=== PATIENT | male | born 1965 | race Caucasian/White ===

== ENCOUNTER 2017-05-17 13:21 | Emergency (ER) | payer OTHER ==
[~2017-05-17] VITALS: Ht 182.9 cm; Wt 59.0 kg
[2017-05-17 14:07] LABS: HEMATOCRIT 37.7 % (39.2-51.8); HEMOGLOBIN 12.8 g/dL (13.7-18.0); WHITE BLOOD COUNT 5.1 x10^3/uL (3.4-10)
[2017-05-17] MEDS ORDERED: LEVE250T28 PO (14:11)
[2017-05-17] MEDS ORDERED: CARB200T2 PO (14:11)
[2017-05-17] MEDS ORDERED: DIVA500T2 PO (14:11)
[2017-05-17 14:13] LABS: ASPARTATE AMINO TRANSFERASE 15 U/L (15-37); BLOOD UREA NITROGEN 22 mg/dL (7-18)
[2017-05-17] MEDS ORDERED: LEVETIRACETAM 1,000 MG in SODIUM CHLORIDE 0.9% 100 ML IV ONE (14:30)
[2017-05-17 15:27] VITALS: BP 117/66
== END 2017-05-17 15:30 | disposition home or self-care (01) ==
LOC: ED 15:07
DX: G40.419 Other generalized epilepsy and epileptic syndromes, intractable, without status epilepticus (principal)
CPT/HCPCS: 36415; 80053; 85025; 93005; 96365; 99285; J1953

== ENCOUNTER 2017-06-03 11:54 | Emergency (ER) | payer SELFPAY ==
[~2017-06-03] VITALS: Ht 182.9 cm; Wt 56.8 kg
[~2017-06-03 11:54] MED LIST: CARB200T2 PO; DIVA500T2 PO; LEVE250T28 PO
[2017-06-03 11:55] VITALS: BP 154/83
== END 2017-06-03 12:43 | disposition home or self-care (01) ==
LOC: ED 12:15
DX: Z76.0 Encounter for issue of repeat prescription (principal)
CPT/HCPCS: 99283

== ENCOUNTER 2017-07-20 12:41 | Emergency (ER) | payer OTHER ==
[~2017-07-20] VITALS: Ht 182.9 cm; Wt 61.8 kg
[2017-07-20 12:59] VITALS: BP 142/81
== END 2017-07-20 13:41 | disposition home or self-care (01) ==
LOC: ED 13:35
DX: Z76.0 Encounter for issue of repeat prescription (principal); G40.909 Epilepsy, unspecified, not intractable, without status epilepticus
CPT/HCPCS: 99283

== ENCOUNTER 2017-10-10 06:23 | Emergency (ER) | payer MEDICAID, OTHER ==
[~2017-10-10] VITALS: Ht 182.9 cm; Wt 63.8 kg
[2017-10-10] MEDS ORDERED: SODIUM CHLORIDE FLUSH 10ML SYR IVF ONE (07:00)
[2017-10-10] MEDS ORDERED: LEVETIRACETAM 1,000 MG in SODIUM CHLORIDE 0.9% 100 ML IV ONE (07:00)
[2017-10-10 07:31] LABS: BASOPHILS # (AUTO) 0.02 x10^3/uL (0-0.1); BASOPHILS % (AUTO) 0 % (0-1); EOSINOPHILS # (AUTO) 0.36 x10^3/uL (0-0.4); EOSINOPHILS % (AUTO) 7 % (1-7); LYMPHOCYTES # (AUTO) 0.82 x10^3/uL (1-3.4); LYMPHOCYTES % (AUTO) 17 % (22-44); MD NO; MEAN CORPUSCULAR HEMOGLOBIN 30.8 pg (27.5-34.5); MEAN CORPUSCULAR HGB CONC 33.6 g/dL (33.2-36.2); MEAN CORPUSCULAR VOLUME 91.7 fL (81-97); MEAN PLATELET VOLUME 7.6 fL (7.4-10.4); MONOCYTES # (AUTO) 0.34 x10^3/uL (0.2-0.8); MONOCYTES % (AUTO) 7 % (2-9); NEUTROPHILS # (AUTO) 3.36 x10^3/uL (1.8-6.8); NEUTROPHILS % (AUTO) 69 % (42-75); PLATELET COUNT 254 x10^3/uL (130-400); RED BLOOD COUNT 4.19 x10^6/uL (4.38-5.82); RED CELL DISTRIBUTION WIDTH 13.4 % (9.4-14.8)
[2017-10-10 07:43] LABS: ALANINE AMINOTRANSFERASE 19 U/L (12-78); ALBUMIN 3.2 g/dL (3.4-5.0); ANION GAP 4 mmol/L (5-15); CHLORIDE 105 mmol/L (98-107); CREATININE 0.94 mg/dL (0.7-1.3)
[2017-10-10 07:46] LABS: ALKALINE PHOSPHATASE 73 U/L (45-117); BILIRUBIN,TOTAL 0.2 mg/dL (0.2-1.0); TOTAL PROTEIN 7.1 g/dL (6.4-8.2)
[2017-10-10 09:10] VITALS: BP 123/79
== END 2017-10-10 09:15 | disposition home or self-care (01) ==
LOC: ED 08:08
DX: G40.411 Other generalized epilepsy and epileptic syndromes, intractable, with status epilepticus (principal)
CPT/HCPCS: 36415; 70450; 80053; 85025; 96365; 99285; J1953

== ENCOUNTER 2018-05-24 08:02 | Emergency (ER) | payer MEDICAID ==
[~2018-05-24] VITALS: Ht 182.9 cm; Wt 61.2 kg
[2018-05-24] MEDS ORDERED: SODIUM CHLORIDE FLUSH 10ML SYR IVF ONE (08:30)
[2018-05-24 08:41] LABS: BASOPHILS # (AUTO) 0.02 x10^3/uL (0-0.1); BASOPHILS % (AUTO) 0 % (0-1); EOSINOPHILS # (AUTO) 0.12 x10^3/uL (0-0.4); EOSINOPHILS % (AUTO) 2 % (1-7); LYMPHOCYTES # (AUTO) 0.72 x10^3/uL (1-3.4); LYMPHOCYTES % (AUTO) 11 % (22-44); MD NO; MEAN CORPUSCULAR HEMOGLOBIN 30.8 pg (27.5-34.5); MEAN CORPUSCULAR HGB CONC 33.4 g/dL (33.2-36.2); MEAN CORPUSCULAR VOLUME 92.1 fL (81-97); MEAN PLATELET VOLUME 7.8 fL (7.4-10.4); MONOCYTES # (AUTO) 0.58 x10^3/uL (0.2-0.8); MONOCYTES % (AUTO) 9 % (2-9); NEUTROPHILS # (AUTO) 5.01 x10^3/uL (1.8-6.8); NEUTROPHILS % (AUTO) 78 % (42-75); PLATELET COUNT 274 x10^3/uL (130-400); RED BLOOD COUNT 4.46 x10^6/uL (4.38-5.82); RED CELL DISTRIBUTION WIDTH 13.5 % (9.4-14.8)
[2018-05-24 08:52] LABS: ALBUMIN 3.7 g/dL (3.4-5.0); ANION GAP 7 mmol/L (5-15); CALCIUM 8.3 mg/dL (8.5-10.1); CHLORIDE 104 mmol/L (98-107); CREATININE 1.12 mg/dL (0.7-1.3)
[2018-05-24 10:19] VITALS: BP 128/62
== END 2018-05-24 10:21 | disposition home or self-care (01) ==
LOC: ED 10:00
DX: G40.309 Generalized idiopathic epilepsy and epileptic syndromes, not intractable, without status epilepticus (principal)
CPT/HCPCS: 36415; 80048; 80156; 80164; 80177; 82040; 85025; 99284

== ENCOUNTER 2018-12-16 10:06 | Emergency (ER) | payer MEDICAID, OTHER ==
[~2018-12-16] VITALS: Ht 182.9 cm; Wt 63.3 kg
[2018-12-16 10:18] VITALS: BP 114/72
[2018-12-16] MEDS ORDERED: LEVE500T53 PO (10:31)
[2018-12-16] MEDS ORDERED: CARB400T PO (10:31)
== END 2018-12-16 11:10 | disposition home or self-care (01) ==
LOC: ED 11:09
DX: R56.9 Unspecified convulsions (principal); Z76.0 Encounter for issue of repeat prescription
CPT/HCPCS: 99283

== ENCOUNTER 2019-02-12 18:56 | Emergency (ER) | payer MEDICARE, OTHER ==
[~2019-02-12] VITALS: Ht 182.9 cm; Wt 62.8 kg
[2019-02-12 18:57] VITALS: BP 132/72
== END 2019-02-12 19:40 | disposition home or self-care (01) ==
LOC: ED 19:23
DX: R56.9 Unspecified convulsions (principal); Z76.0 Encounter for issue of repeat prescription
CPT/HCPCS: 99281; 99283

== ENCOUNTER → 2020-05-30 | Outpatient (CLI) | payer MEDICARE ==
[~2020-05-30] MED LIST changes: +CARB400T PO; +LEVE500T53 PO
== END | disposition home or self-care (01) ==
LOC: CARD 09:04
PROVIDERS: ATTEND Nurse Practitioner
DX: G40.909 Epilepsy, unspecified, not intractable, without status epilepticus (principal); Z98.890 Other specified postprocedural states
CPT/HCPCS: 95819